=== PATIENT | female | born 1960 | race Two or more races ===

== ENCOUNTER 2021-05-31 08:38 | Inpatient (IN) | payer OTHER ==
[~2021-05-31] VITALS: Ht 152.4 cm; Wt 90.7 kg
[2021-05-31] MEDS ORDERED: METFORMIN HCL500 M3 (08:53)
[2021-05-31] MEDS ORDERED: CILOSTAZOL50 MG (08:54)
[2021-05-31] MEDS ORDERED: LIPITOR40 M1 (08:57)
[2021-05-31] MEDS ORDERED: COZAAR25 MG (08:57)
[2021-05-31] MEDS ORDERED: NORVASC5 MG (08:58)
[2021-06-01] MEDS ORDERED: BUSPIRONE HCL15 MG (11:35)
[2021-06-08] MEDS ORDERED: MOXIFLOXACIN H400 MG PO (18:53)
[2021-06-08] MEDS ORDERED: INTESTINEX680 M1 PO (18:53)
[2021-06-08] MEDS ORDERED: LIPITOR40 MG PO (18:53)
[2021-06-08] MEDS ORDERED: CILOSTAZOL50 MG PO (18:53)
[2021-06-08] MEDS ORDERED: AMLODIPINE BESYL5 MG PO (18:53)
[2021-06-08] MEDS ORDERED: LOSARTAN-HCTZ1 EACH PO (18:53)
== END 2021-06-08 19:19 | disposition home or self-care (01) | DRG 392 ==
LOC: ER 08:38 → MEDI 21:21
PROVIDERS: ADMIT Internal Medicine; ATTEND Internal Medicine
PROC: BW211ZZ Computerized Tomography (CT Scan) of Abdomen and Pelvis using Low Osmolar Contrast (ICD-10-PCS; 2021-05-31)
PROC: 02HV33Z Insertion of Infusion Device into Superior Vena Cava, Percutaneous Approach (ICD-10-PCS; principal; 2021-06-02)
DX: K57.32 Diverticulitis of large intestine without perforation or abscess without bleeding (principal); N39.0 Urinary tract infection, site not specified; E11.65 Type 2 diabetes mellitus with hyperglycemia; I10 Essential (primary) hypertension; E78.5 Hyperlipidemia, unspecified; E66.8 Other obesity

== ENCOUNTER 2021-08-07 10:30 | Inpatient (IN) | payer OTHER ==
[~2021-08-07] VITALS: Ht 152.4 cm; Wt 95.3 kg
[~2021-08-07 10:30] MED LIST: AMLODIPINE BESYL5 MG PO; BUSPIRONE HCL15 MG; CILOSTAZOL50 MG; CILOSTAZOL50 MG PO; COZAAR25 MG; INTESTINEX680 M1 PO; LIPITOR40 M1; LIPITOR40 MG PO; LOSARTAN-HCTZ1 EACH PO; METFORMIN HCL500 M3; MOXIFLOXACIN H400 MG PO; NORVASC5 MG
== END 2021-08-14 17:48 | disposition home or self-care (01) | DRG 330 ==
LOC: SURH 08-11 05:15 → O/R 08-11 05:15 → SURH 08-11 07:00
PROVIDERS: ADMIT Colon & Rectal Surgery; ATTEND Colon & Rectal Surgery
PROC: 0DBP4ZZ Excision of Rectum, Percutaneous Endoscopic Approach (ICD-10-PCS; 2021-08-11)
PROC: 0DN84ZZ Release Small Intestine, Percutaneous Endoscopic Approach (ICD-10-PCS; 2021-08-11)
PROC: 0DQ84ZZ Repair Small Intestine, Percutaneous Endoscopic Approach (ICD-10-PCS; 2021-08-11)
PROC: 0DTN4ZZ Resection of Sigmoid Colon, Percutaneous Endoscopic Approach (ICD-10-PCS; principal; 2021-08-11 07:00)
DX: K57.32 Diverticulitis of large intestine without perforation or abscess without bleeding (principal); K92.1 Melena; K91.71 Accidental puncture and laceration of a digestive system organ or structure during a digestive system procedure; K66.0 Peritoneal adhesions (postprocedural) (postinfection); I10 Essential (primary) hypertension; E11.9 Type 2 diabetes mellitus without complications; Z79.4 Long term (current) use of insulin; E66.8 Other obesity